=== PATIENT | male | born 1965 | race Caucasian/White ===

== ENCOUNTER 2019-07-07 07:32 | Emergency (ER) | payer OTHER ==
[~2019-07-07] VITALS: Ht 182.9 cm; Wt 88.5 kg
--- NOTE | 2019-07-07 07:32 | NUR ---
Patient to ER bed 1 to gown for evaluation. Side rails up.
--- NOTE | 2019-07-07 07:33 | NUR ---
Patient was brought in by EMS s/p seizure. is at bedside. Patient is awake, alert, and oriented x4. He denies any trauma, pain, nausea, vomiting, or diarrhea at this time. Seizure pads put in place, patient placed on security monitor.
--- NOTE | 2019-07-07 07:34 | NUR ---
Patient provided urinal and instructed that a urine sample may be needed. He verbalized understanding.
[2019-07-07 07:38] VITALS: BP_SYST 133
--- NOTE | 2019-07-07 07:40 | NUR ---
Was starting IV to get blood samples, patient's started got in my face and started yelling, "This one couldn't get an IV on me last time! If you can't do it you need to get someone else!" I advised her to step back and that it was already inserted. She stated, "I will complain! I have done it before! They don't like it when I complain!" Addendum: 07/07/19 at 0748 by KATHI Patient threatened, "Better her than me."
--- NOTE | 2019-07-07 07:55 | NUR ---
ER Dr. Henry at bedside examining patient.
[2019-07-07] MEDS ORDERED: levETIRAcetam 1,000 MG in NS 100 ML IV ONE (08:00)
[2019-07-07 08:24] LABS: BASOPHILS # (AUTO) 0.1 K/uL (0.0-0.2); EOSINOPHILS # (AUTO) 0.4 K/uL (0.0-0.4); EOSINOPHILS % (AUTO) 4.8 % (0.0-4.0); HEMATOCRIT 48.2 % (36-54); HEMOGLOBIN 16.3 g/dL (14.0-18.0); LYMPHOCYTES # (AUTO) 2.8 K/uL (1.0-5.5); LYMPHOCYTES % (AUTO) 31.8 % (20.5-51.5); MEAN CORPUSCULAR HEMOGLOBIN 31 pg (27-31); MEAN CORPUSCULAR HGB CONC 34 % (32-36); MEAN CORPUSCULAR VOLUME 92 fL (79.0-98.0); MONOCYTES # (AUTO) 0.5 K/uL (0.0-1.0); NEUTROPHILS % (AUTO) 56.4 % (40.0-70.0); PLATELET COUNT (AUTO) 166 K/uL (130-430); RED BLOOD CELL COUNT(AUTO) 5.22 MIL/uL (4.2-6.2); RED CELL DISTRIBUTION WIDTH 14.8 % (9.0-15.0); WHITE BLOOD COUNT (AUTO) 8.9 K/uL (4.8-10.8)
[2019-07-07 08:32] LABS: CALCIUM 8.8 mg/dL (8.4-11.0); CREATININE 1.17 mg/dL (0.55-1.30)
[2019-07-07 08:42] LABS: ALBUMIN 3.7 g/dL (3.4-4.8); TOTAL BILIRUBIN 0.2 mg/dL (0.0-1.0)
--- NOTE | 2019-07-07 08:45 | NUR ---
Patient is complaining of nausea. MD made aware.
[2019-07-07] MEDS ORDERED: ONDANSETRON HCL 4 MG/2 ML VIAL IVP ONE (09:00)
--- NOTE | 2019-07-07 09:00 | NUR ---
Patient O2 sat 91-92% on room air. Patient placed on 1LPM via NC. Dr. Henry is aware.
[2019-07-07] MEDS ORDERED: IOHEXOL 100 ML IV ONE (09:12)
--- NOTE | 2019-07-07 09:13 | NUR ---
Patient transported to radiology via gurney, accompanied by photogrammetric technician.
--- NOTE | 2019-07-07 09:40 | NUR ---
Returned from radiology, back to [facility].
--- NOTE | 2019-07-07 10:31 | NUR ---
Patient states he does not have a ride back to the [facility]. They are requesting a taxi ride. supervisor [employer] and sh[employer] department notified.
[2019-07-07 10:48] VITALS: BP_SYST 109
--- NOTE | 2019-07-07 10:48 | NUR ---
Patient given written and verbal discharge instructions and verbalizes understanding. ER MD discussed with patient the results and treatment provided. Patient in stable condition. ID arm band removed. IV catheter removed intact and dressing applied, no active bleeding. Rx of keppra given. Patient educated on pain management and to follow up with PMD. Pain Scale 0/10. Opportunity for questions provided and answered. Medication side effect fact sheet provided.
== END 2019-07-07 10:48 | disposition home or self-care (01) ==
LOC: SED 07:32
DX: R56.9 Unspecified convulsions (principal)
CPT/HCPCS: 36415; 70470; 80053; 85025; 96365; 96375; 99284; J1953; J2405; Q9967